=== PATIENT | female | born 1975 | race African-American/Black ===

== ENCOUNTER 2024-11-14 06:58 | Inpatient (IN) | payer MEDICARE, MEDICAID ==
[~2024-11-14] VITALS: Ht 160 cm; Wt 65.5 kg
[2024-11-14] VITALS (8 sets, daily range): BP systolic 79–139; BP diastolic 18–65; PULSE 62–83; RESP 16–20; TEMP 36.22512–36.55848; O2SAT 98–100
[~2024-11-14 06:58] MED LIST: AMLO10TA80 PO; HYDR12.54 PO; INSU3INS6 SUBCUT
[2024-11-14 08:06] LABS: BASOPHILS % 0.3 % (0.0-2.0); EOSINOPHILS % 0.6 % (0.0-5.0); LYMPHOCYTES % 8.1 % (20.0-50.0); MEAN PLATELET VOLUME 7.3 fl (7.4-10.4); MONOCYTES % 7.0 % (2.0-8.0); NEUTROPHILS % 84.0 % (40.0-76.0); PLATELET 526 x1000/uL (130-400); RED BLOOD CELL COUNT 2.61 mill/uL (4.2-5.4); RED CELL DISTRIBUTION WIDTH 19.0 % (11.6-14.6)
[2024-11-14 08:11] LABS: HEMATOCRIT. 22.4 % (36.0-48.0); HEMOGLOBIN. 6.9 g/dL (12.0-16.0)
[2024-11-14 08:16] LABS: CREATININE 3.1 mg/dL (0.6-1.0); UREA NITROGEN BLOOD 21 mg/dL (9-23)
[2024-11-14 08:17] LABS: TROPONIN I HIGH SENSITIVITY 12 ng/L (3.0-34)
[2024-11-14 09:51] LABS: TROPONIN I HIGH SENSITIVITY 14 ng/L (3.0-34)
[2024-11-14] MEDS ORDERED: LISI40TA13 MT (17:45)
[2024-11-14] MEDS ORDERED: CALC0.253 PO (17:45)
[2024-11-14] MEDS ORDERED: CLON-493 MT (17:45)
[2024-11-14] MEDS ORDERED: SODI650T PO (17:45)
[2024-11-14] MEDS ORDERED: FERR-71 MT (17:45)
[2024-11-14] MEDS ORDERED: ATOR10TA69 MT (17:45)
[2024-11-14] MEDS ORDERED: ONDA-239 PO (17:45)
[2024-11-14] MEDS ORDERED: CINA30 MT (17:45)
[2024-11-14] MEDS ORDERED: ASPI-1497 MT (17:45)
[2024-11-14] MEDS ORDERED: TOPUD PO (17:45)
[2024-11-14] MEDS ORDERED: AMLO10TA80 MT (17:45)
[2024-11-14] MEDS ORDERED: CHOL100036 (17:45)
[2024-11-15] VITALS (8 sets, daily range): BP systolic 109–142; BP diastolic 61–83; PULSE 65–83; RESP 17–22; TEMP 36.2–36.8; O2SAT 93–99
[2024-11-15] MEDS ORDERED: MAGNESIUM/ALUMINUM HYDROXIDE/SIMETHICONE 30ML UDC PO PRN (00:15)
[2024-11-15] MEDS ORDERED: DIPHENHYDRAMINE 50MG/ML VIAL IV PRN (00:15)
[2024-11-15] MEDS ORDERED: DOCUSATE SODIUM 100MG CAPSULE PO PRN (00:15)
[2024-11-15] MEDS ORDERED: ACETAMINOPHEN 325MG TABLET PO PRN (00:15)
[2024-11-15] MEDS: ZOLPIDEM TARTRATE 5MG TABLET PO PRN (00:36)
[2024-11-15] MEDS: ACETAMINOPHEN 325MG TABLET PO PRN (00:37)
[2024-11-15] MEDS: SODIUM CHLORIDE 0.9% 3ML FLUSH IVF SCH (06:18)
[2024-11-15 13:33] LABS: BASOPHILS % 0.3 % (0.0-2.0); EOSINOPHILS % 0.8 % (0.0-5.0); HEMATOCRIT. 27.0 % (36.0-48.0); HEMOGLOBIN. 8.3 g/dL (12.0-16.0); LYMPHOCYTES % 9.7 % (20.0-50.0); MEAN PLATELET VOLUME 7.3 fl (7.4-10.4); MONOCYTES % 5.9 % (2.0-8.0); NEUTROPHILS % 83.3 % (40.0-76.0); PLATELET 499 x1000/uL (130-400); RED BLOOD CELL COUNT 3.04 mill/uL (4.2-5.4); RED CELL DISTRIBUTION WIDTH 18.6 % (11.6-14.6)
[2024-11-15 14:02] LABS: UREA NITROGEN BLOOD 34.0 mg/dL (9-23)
[2024-11-15] MEDS ORDERED: ATROPINE SULFATE 1MG/10ML SYR IV PRN (14:15)
[2024-11-15 14:30] LABS: CREATININE 5.7 mg/dL (0.6-1.0)
[2024-11-15] MEDS: ATORVASTATIN CALCIUM 20MG TABLET PO SCH (21:59)
[2024-11-16] VITALS (11 sets, daily range): BP systolic 127–150; BP diastolic 68–91; PULSE 65–91; RESP 13–22; TEMP 36.3–37.1; O2SAT 94–100
[2024-11-16] MEDS: FOLIC ACID/VITAMIN B COMP W-C TABLET PO SCH (09:25)
[2024-11-16] MEDS: LISINOPRIL 2.5MG TABLET PO SCH (09:25)
[2024-11-16 12:16] LABS: BASOPHILS % 0.2 % (0.0-2.0); EOSINOPHILS % 0.7 % (0.0-5.0); HEMATOCRIT. 23.7 % (36.0-48.0); HEMOGLOBIN. 7.5 g/dL (12.0-16.0); LYMPHOCYTES % 9.1 % (20.0-50.0); MEAN PLATELET VOLUME 7.2 fl (7.4-10.4); MONOCYTES % 5.9 % (2.0-8.0); NEUTROPHILS % 84.1 % (40.0-76.0); PLATELET 485 x1000/uL (130-400); RED BLOOD CELL COUNT 2.77 mill/uL (4.2-5.4); RED CELL DISTRIBUTION WIDTH 18.0 % (11.6-14.6)
[2024-11-16 12:23] LABS: UREA NITROGEN BLOOD 48.0 mg/dL (9-23)
[2024-11-16 12:25] LABS: CREATININE 7.4 mg/dL (0.6-1.0)
[2024-11-16 13:02] LABS: HEPATITIS A AB IGM NEGATIVE (Negative)
[2024-11-16 13:03] LABS: HEPATITIS B CORE AB IGM NEGATIVE (Negative); HEPATITIS C AB NON REACTIVE (Neg) (Negative)
[2024-11-17] VITALS (20 sets, daily range): BP systolic 104–148; BP diastolic 51–121; PULSE 56–93; RESP 10–20; TEMP 36.4–37.2; O2SAT 93–99
[2024-11-17] MEDS: ONDANSETRON HCL 4MG/2ML INJ IV PRN (19:48)
[2024-11-18] VITALS (12 sets, daily range): BP systolic 125–151; BP diastolic 50–80; PULSE 77–95; RESP 15–22; TEMP 36.2–37.1; O2SAT 92–99
[2024-11-19] VITALS (14 sets, daily range): BP systolic 99–159; BP diastolic 36–73; PULSE 63–90; RESP 15–22; TEMP 36.4–36.7; O2SAT 93–100
[2024-11-19] MEDS: PANTOPRAZOLE SODIUM 40 MG/VIAL IV SCH (08:36)
[2024-11-19] MEDS ORDERED: GENTAMICIN/NS IRRIGATION 500 ML IR SCH (08:45)
[2024-11-19 10:21] LABS: BASOPHILS % 0.3 % (0.0-2.0); EOSINOPHILS % 1.3 % (0.0-5.0); HEMATOCRIT. 25.5 % (36.0-48.0); HEMOGLOBIN. 7.9 g/dL (12.0-16.0); LYMPHOCYTES % 13.8 % (20.0-50.0); MEAN PLATELET VOLUME 7.5 fl (7.4-10.4); MONOCYTES % 6.0 % (2.0-8.0); NEUTROPHILS % 78.6 % (40.0-76.0); PLATELET 507 x1000/uL (130-400); RED BLOOD CELL COUNT 2.86 mill/uL (4.2-5.4); RED CELL DISTRIBUTION WIDTH 18.1 % (11.6-14.6)
[2024-11-19 10:23] LABS: UREA NITROGEN BLOOD 74.0 mg/dL (9-23)
[2024-11-19 10:51] LABS: CREATININE 9.1 mg/dL (0.6-1.0)
[2024-11-19] MEDS ORDERED: LIDOCAINE HCL 1% 20ML VIAL ONE (11:10)
[2024-11-19] MEDS ORDERED: CEFAZOLIN SODIUM 1000MG/VIAL ONE (11:20)
[2024-11-19] MEDS ORDERED: FENTANYL CITRATE/PF 50MCG/ML 2ML VIAL ONE (11:21)
[2024-11-19] MEDS ORDERED: MIDAZOLAM HCL 2 MG/2 ML VIAL ONE (11:21)
[2024-11-19] MEDS ORDERED: IODIXANOL 320MG/ML 100 ML BOTTLE IV ONE (11:32)
[2024-11-19] MEDS ORDERED: SODIUM CHLORIDE 0.9% 10ML VIAL ONE (11:33)
[2024-11-19] MEDS ORDERED: GENTAMICIN SULF 40MG/ML 2ML VIAL ONE (12:48)
[2024-11-20] VITALS (12 sets, daily range): BP systolic 90–146; BP diastolic 51–69; PULSE 63–102; RESP 16–22; TEMP 36.3–36.9; O2SAT 93–100
[2024-11-21] VITALS (24 sets, daily range): BP systolic 123–178; BP diastolic 55–80; PULSE 60–90; RESP 14–23; TEMP 35.8362–37; O2SAT 82–100
[2024-11-21 10:06] LABS: BASOPHILS % 0.4 % (0.0-2.0); EOSINOPHILS % 2.6 % (0.0-5.0); HEMATOCRIT. 22.7 % (36.0-48.0); LYMPHOCYTES % 10.5 % (20.0-50.0); MEAN PLATELET VOLUME 7.5 fl (7.4-10.4); MONOCYTES % 6.8 % (2.0-8.0); NEUTROPHILS % 79.7 % (40.0-76.0); PLATELET 414 x1000/uL (130-400); RED BLOOD CELL COUNT 2.51 mill/uL (4.2-5.4); RED CELL DISTRIBUTION WIDTH 17.7 % (11.6-14.6)
[2024-11-21 10:26] LABS: UREA NITROGEN BLOOD 67.0 mg/dL (9-23)
[2024-11-21 10:50] LABS: CREATININE 7.6 mg/dL (0.6-1.0); HEMOGLOBIN. 6.9 g/dL (12.0-16.0)
[2024-11-21] MEDS: CEFAZOLIN 1000MG PREMIX 50 ML IV SCH (19:34)
[2024-11-21] MEDS: EPOETIN ALFA-EPBX 4,000 UNIT/ML VIAL SUBCUT SCH (21:29)
[2024-11-22] VITALS (10 sets, daily range): BP systolic 133–194; BP diastolic 57–77; PULSE 60–91; RESP 16–24; TEMP 36.3–36.9; O2SAT 95–100
[2024-11-22] MEDS: CLONIDINE 0.1MG TABLET PO PRN (00:06)
[2024-11-22] MEDS: HYDRALAZINE 20MG/ML VIAL IV PRN (03:18)
[2024-11-22 03:49] LABS: BASOPHILS % 0.4 % (0.0-2.0); EOSINOPHILS % 3.2 % (0.0-5.0); HEMATOCRIT. 26.4 % (36.0-48.0); HEMOGLOBIN. 8.6 g/dL (12.0-16.0); LYMPHOCYTES % 13.5 % (20.0-50.0); MEAN PLATELET VOLUME 7.2 fl (7.4-10.4); MONOCYTES % 5.5 % (2.0-8.0); NEUTROPHILS % 77.4 % (40.0-76.0); PLATELET 399 x1000/uL (130-400); RED BLOOD CELL COUNT 3.05 mill/uL (4.2-5.4); RED CELL DISTRIBUTION WIDTH 17.0 % (11.6-14.6)
[2024-11-22 03:57] LABS: UREA NITROGEN BLOOD 41 mg/dL (9-23)
[2024-11-22 03:59] LABS: ASPARTATE AMINOTRANSFERASE 10 IU/L (<34); BILIRUBIN DIRECT < 0.1 mg/dL (<=3.0); BILIRUBIN TOTAL < 0.2 mg/dL (0.1-1.0); CREATININE 5.7 mg/dL (0.6-1.0); INR 1.0; PHOSPHORUS 3.0 mg/dL (2.5-4.9)
[2024-11-22 04:00] LABS: PROTEIN TOTAL 7.3 g/dL (6.0-8.3)
[2024-11-23] MEDS ORDERED: FAMOTIDINE 20MG/2ML VIAL IV SCH (09:00)
== END 2024-11-22 19:15 | disposition home health service (06) | DRG 242 ==
LOC: ER 06:58 → 7WST 08:50 → EDBEDREQ 08:59 → EDBEDREQTM 08:59 → ENRESERV 10:11 → 5EST 11-15 15:22
PROVIDERS: ADMIT Internal Medicine; ATTEND Internal Medicine
PROC: 5A1D70Z Performance of Urinary Filtration, Intermittent, Less than 6 Hours Per Day (ICD-10-PCS; 2024-11-17)
PROC: 0JH606Z Insertion of Pacemaker, Dual Chamber into Chest Subcutaneous Tissue and Fascia, Open Approach (ICD-10-PCS; principal; 2024-11-19)
PROC: 02H63JZ Insertion of Pacemaker Lead into Right Atrium, Percutaneous Approach (ICD-10-PCS; 2024-11-19)
PROC: 02HK3JZ Insertion of Pacemaker Lead into Right Ventricle, Percutaneous Approach (ICD-10-PCS; 2024-11-19)
PROC: B517YZZ Fluoroscopy of Left Subclavian Vein using Other Contrast (ICD-10-PCS; 2024-11-19)
PROC: 30233N1 Transfusion of Nonautologous Red Blood Cells into Peripheral Vein, Percutaneous Approach (ICD-10-PCS; 2024-11-19)
PROC: 5A1D70Z Performance of Urinary Filtration, Intermittent, Less than 6 Hours Per Day (ICD-10-PCS; 2024-11-19)
PROC: 5A1D70Z Performance of Urinary Filtration, Intermittent, Less than 6 Hours Per Day (ICD-10-PCS; 2024-11-21)
DX: I49.5 Sick sinus syndrome (principal); N18.6 End stage renal disease; I12.0 Hypertensive chronic kidney disease with stage 5 chronic kidney disease or end stage renal disease; E87.1 Hypo-osmolality and hyponatremia; E87.6 Hypokalemia; D64.9 Anemia, unspecified; D72.829 Elevated white blood cell count, unspecified; H54.7 Unspecified visual loss; E11.22 Type 2 diabetes mellitus with diabetic chronic kidney disease; L73.2 Hidradenitis suppurativa; E78.5 Hyperlipidemia, unspecified; Z99.2 Dependence on renal dialysis; Z79.899 Other long term (current) drug therapy
CPT/HCPCS: 33208; 36415; 71045; 75820; 80048; 80051; 80076; 82962; 83735; 84100; 84443; 84484; 84702; 85014; 85018; 85025; 85384; 86705; 86709; 86850; 86900; 86920; 87340; 90935; 93005; 99291; A4606; C1769; C1893; J0360; J0690; J0885; J1580; J2003; J2250; J2405; J2470; J3010; P9016; Q9967; C1785